=== PATIENT | male | born 1955 | race Asian ===

== ENCOUNTER 2016-06-20 13:14 | Day surgery (SDC) | payer BC ==
[~2016-06-20] VITALS: Ht 167.6 cm; Wt 57.7 kg
[2016-06-20 15:18] VITALS: Ht 167.6 cm; Wt 57.7 kg
[2016-06-20] MEDS ORDERED: LOSARTAN PO (15:24)
[2016-06-20] MEDS ORDERED: ALLOPURINOL PO (15:24)
[2016-06-20] MEDS ORDERED: VITAMIN D PO (15:25)
[2016-06-20] MEDS ORDERED: PROPOFOL 40 ML ONE (16:06)
[2016-06-20] MEDS ORDERED: LIDOCAINE 2% (SDV) 5 ML INJ ONE (16:06)
[2016-06-20 16:09] VITALS: BP 144/77; PULSE 95; RESP 16
[2016-06-20 17:05] VITALS: BP 127/69; PULSE 64; RESP 16
--- NOTE | 2016-06-20 17:46 | GILP ---
DATE OF PROCEDURE: 06/20/2016 DATE: 06/20/2016 NAME OF PROCEDURE: Colonoscopy with snare polypectomy. SURGEON: Anamaria Roa MD. HISTORY AND INDICATIONS: The patient is being evaluated for colorectal cancer screening. PREMEDICATION: Monitored anesthesia care by anesthesiologist. INSTRUMENT USED: Olympus colonoscope. PREPARATION: Adequate. TECHNIQUE: After informed consent, with the patient/relatives understanding the procedure, its indic ations potential risks and complications, including but not limited to: allergic reaction, bleeding, perforation, infection, missed lesions, and after all pertinent questions were answered to the yonny ent's satisfaction, the patient/relatives signed the witnessed informed consent. Following this, premedication was administered slowly IV push by under careful cardiovascular and re spiratory monitoring with pulse oximetry, automatic blood pressure and coordinator of health services. Once the sedati ve effect was achieved, the patient was placed in the left lateral decubitus position, digital recta l examination was performed. The colonoscope was then introduced and advanced under visual control throughout all segments of the colon including: the rectum, sigmoid, descending colon, splenic flexu re, transverse colon, hepatic flexure, ascending colon and finally reaching the cecum which was [place] rly identified by transillumination, finger indentation and the ileocecal valve. Careful examinatio n of the mucosa of the lower gastrointestinal tract both on insertion as well as withdrawal of the i nstrument disclosed the following findings: Rectal Examination: No evidence of perirectal disease, no masses. Colonic Mucosa: The colonic mucosa remarkable for the presence of an 8 mm pedunculated polyp in the sigmoid colon, which was snared and retrieved. The remainder of colonic mucosa unremarkable. The ileocecal valve was clearly identified and appear s unremarkable. The instrument was withdrawn reexamining the mucosa in detail. No additional abnor malities are noted with exception of moderate sized internal hemorrhoids. The instrument was then withdrawn, the patient tolerated the procedure well and was transferred out of the Endoscopy Suite awake and in good condition to continue recovery under observation. IMPRESSION: 1. An 8 mm pedunculated polyp, sigmoid colon, snared and retrieved. 2. Moderate size internal hemorrhoids. PLAN: The patient will follow up as an outpatient. Pathology will be reviewed as soon as available . Annual Hemoccult stool testing would be recommended and surveillance colonoscopy in 5 years is re commended as well. Dictated By: ANAMARIA ROA MS/NTS Conf#: [id number] DID#: [id number] CC: ANAMARIA ROA;*[facility]*
== END 2016-06-20 17:42 | disposition home or self-care (01) ==
LOC: GIL 13:14
PROVIDERS: ATTEND Internal Medicine Gastroenterology
DX: Z12.11 Encounter for screening for malignant neoplasm of colon (principal); D12.5 Benign neoplasm of sigmoid colon
CPT/HCPCS: 45380; 88305; Z7610